=== PATIENT | female | born 1985 | race Caucasian/White ===

== ENCOUNTER 2023-11-20 03:29 | Emergency (ER) | payer MEDICAID, OTHER ==
[~2023-11-20] VITALS: Ht 175.3 cm; Wt 81.8 kg
[2023-11-20 03:36] VITALS: BP 135/88; PULSE 95; RESP 18; TEMP 97.7; O2SAT 96
== END 2023-11-20 05:40 | disposition home or self-care (01) ==
LOC: ER 03:29 → EDBD 03:29 → EDSEX 03:29 → ER 05:35
DX: F12.10 Cannabis abuse, uncomplicated (principal); R53.81 Other malaise

== ENCOUNTER 2024-06-08 11:40 | Emergency (ER) | payer MEDICAID | END 2024-06-08 12:08 | disposition left against medical advice (07) | LOC: ER 11:40 | DX: Z00.00 Encounter for general adult medical examination without abnormal findings (principal); Z53.21 Procedure and treatment not carried out due to patient leaving prior to being seen by health care provider ==